=== PATIENT | female | born 1955 | race Caucasian/White ===

== ENCOUNTER → 2017-03-16 | Outpatient (CLI) | payer OTHER ==
--- NOTE | 2017-03-16 13:52 | MAMMOGRAPHY REPORT ---
BILATERAL DIGITAL SCREENING MAMMOGRAM WITH CAD: 03/16/2017 CLINICAL HISTORY: Routine screening. Patient has no complaints. TECHNIQUE: Bilateral CC and MLO views were obtained. Current study was also evaluated with a Compute r Aided Detection (CAD) system. COMPARISON: Comparison is made to exams dated: 01/21/2016 mammogram, 12/04/2014 mammogram, 10/05/2013 asp iration, 09/21/2013 mammogram, 09/21/2013 ultrasound, and 09/12/2013 mammogram - [facility] enter. BREAST COMPOSITION: There are scattered areas of fibroglandular density in both breasts. FINDINGS: There is a focal asymmetry in the upper outer middle one third of the left breast, for whi ch additional spot compression tomosynthesis views and possibly ultrasound are recommended. There are 2 stable ribbon shaped metallic biopsy markers in the left breast. Scattered benign-appear ing macro calcifications bilaterally. A stable lobulated and circumscribed mass in the superior post erior right breast on the MLO view is unchanged dating back to at least 06/11/2009, therefore likely benign. No other suspicious mass, architectural distortion or cluster of microcalcifications is seen. IMPRESSION: ACR BI-RADS CATEGORY 0: INCOMPLETE EVALUATION: NEED ADDITIONAL IMAGING EVALUATION The focal asymmetry in the left upper outer breast needs additional evaluation. The patient will be called to schedule an appointment. Approximately 10% of breast cancers are not detected with mammography. A negative mammographic report should not delay biopsy if a clinically suggestive mass is present. Theresa Dixon M.D. ay/:03/16/2017 08:22:34 Loading Dock Helper: Miriam Begum, [facility] letter sent: Addl Imaging 0 BI-RADS Code: ACR BI-RADS Category 0: Incomplete Evaluation: Need Additional Imaging Evaluation
== END | disposition home or self-care (01) ==
LOC: C.MAMM 07:12
PROVIDERS: ATTEND Family Medicine
DX: Z12.31 Encounter for screening mammogram for malignant neoplasm of breast (principal); N64.9 Disorder of breast, unspecified

== ENCOUNTER → 2017-04-01 | Outpatient (CLI) | payer OTHER ==
--- NOTE | 2017-04-01 13:22 | MAMMOGRAPHY REPORT ---
UNILATERAL LEFT DIGITAL DIAGNOSTIC MAMMOGRAM TOMOSYNTHESIS AND TARGETED LEFT ULTRASOUND: 04/01/2017 CLINICAL HISTORY: Callback from screening mammogram for left breast asymmetry. TECHNIQUE: Breast tomosynthesis in addition to standard 2D mammography was performed. Spot compress ion left CC and MLO 2D and tomosynthesis images were obtained. COMPARISON: Comparison is made to exams dated: 03/16/2017 mammogram, 01/21/2016 mammogram, 12/04/2014 ma mmogram, 09/12/2013 mammogram, 09/21/2013 ultrasound, and 07/24/2012 mammogram - [facility]. BREAST COMPOSITION: There are scattered areas of fibroglandular density in the left breast. FINDINGS: The previously described focal asymmetry in the left upper outer quadrant effaces to a bas marco appearance on the additional spot compression views, with appearance of this region similar to multiple prior exams including the 2010 exam. On the tomosynthesis images there are possible round c ircumscribed masses seen within the asymmetry, the largest measuring 7 mm. A biopsy marker clip is a gain noted within the asymmetry in the left upper outer quadrant. No suspicious masses or architectu ral distortion is noted on the additional images. Targeted ultrasound was performed of the area of the asymmetry within the left upper outer quadrant. In the left breast at 2:00, 2 cm from the nipple, there are multiple adjacent anechoic circumscribed masses consistent with cysts, the largest measuring 6 x 7 mm. A hypoechoic 9 x 7 mm mass is also se en within the area of the cyst grouping, with a linear echogenicity seen within it consistent with a biopsy marker clip from prior benign biopsy. These masses correspond with the circumscribed masses s een mammographically. No suspicious masses or other suspicious sonographic abnormalities are evident in this region. IMPRESSION: ACR BI-RADS CATEGORY 2: BENIGN, TARGETED ULTRASOUND ACR BI-RADS CATEGORY 2: BENIGN The left breast asymmetry effaces to a baseline appearance on the additional views. Corresponding ad jacent cysts are seen on ultrasound, without a suspicious sonographic abnormality evident in this reg ion. Findings are benign and felt to represent combination of normal fibroglandular tissue and cysts . There is no mammographic or targeted sonographic evidence of malignancy. A 1 year screening mammog arnaldo is recommended. The patient has been verbally notified of the results. Approximately 10% of breast cancers are not detected with mammography. A negative mammographic report should not delay biopsy if a clinically suggestive mass is present. Caitie Parisi M.D. ah/:04/01/2017 08:37:16 Leadership Program Associate: Piper MARIEE)(Chhaya), [facility] letter sent: Normal 1/2 BI-RADS Code: ACR BI-RADS Category 2: Benign Ultrasound BI-RADS: ACR BI-RADS Category 2: Benign
== END | disposition home or self-care (01) ==
LOC: C.MAMM 08:00
PROVIDERS: ATTEND Family Medicine
DX: N64.89 Other specified disorders of breast (principal); N60.02 Solitary cyst of left breast

== ENCOUNTER 2023-03-29 03:00 | Inpatient (IN) ==
[2023-03-29] MEDS ORDERED: SODIUM CHLORIDE 0.9% 500 ML IV ONE (03:53)
[2023-03-29] MEDS ORDERED: SODIUM CHLORIDE 0.9% 1000ML 1,000 ML IV SCH (04:00)
[2023-03-29 04:31] LABS: Basophils # (auto) 0.07 K/uL (0-0.2); Basophils % (auto) 0.6 %; Eosinophils # (auto) 0.07 K/uL (0-0.50); Eosinophils % (auto) 0.6 %; Hematocrit (blood only) 37.9 % (37.0-47.0); Hemoglobin 12.9 g/dl (12.0-16.0); Immature Granulocytes # (auto) 0.07 K/uL (0.01-0.20); Immature Granulocytes % (auto) 0.6 %; Lymphocytes # (auto) 1.78 K/uL (1.2-3.4); Lymphocytes % (auto) 14.2 %; Mean Corpuscular Volume 88.1 fL (80.0-100.0); Mean Platelet Volume 11.6 fL (9.4-12.4); Monocytes % (auto) 6.4 %; Neutrophils # (auto) 9.74 K/uL (1.40-6.50); Neutrophils % (auto) 77.6 %; Platelet Count 200 K/uL (130-400); RDW Coefficient of Variation 12.1 % (11.5-14.5); RDW Standard Deviation 38.8 fL (36.4-46.3); White Blood Count 12.53 K/ul (4.8-10.8)
[2023-03-29 04:46] LABS: Albumin Globulin Ratio 1.1 (0.9-2); Albumin Level 3.9 gm/dl (3.4-5.0); BUN Creatinine Ratio 20.5 (10-20); Bilirubin,Total 0.6 mg/dl (0.2-1.0); Creatinine Clr Calc Pharmacy 61.2 ml/min; Est GFR (African American) 83.4 ml/min; Est GFR (Non-African American) 71.9 ml/min; Globulin 3.4 gm/dl (2.5-4.0); Potassium 3.4 mmol/L (3.5-5.1); Total Protein 7.3 gm/dl (6.0-8.3)
[2023-03-29 05:07] LABS: INR 0.9 (0.9-1.1); Partial Thromboplastin Ratio 0.9; Partial Thromboplastin Time 24.7 Seconds (21.0-31.0); Prothrombin Time 10.4 Seconds (9.0-12.0)
--- NOTE | 2023-03-29 05:23 | Emergency Department Note ---
Impression & Plan Hematochezia, Shingles rash, Renal infarction ED Provider Note CHIEF COMPLAINT: Bright red blood per rectum. HISTORY OF PRESENT ILLNESS: This 68-year-old female patient with past medical history of recent shingles diagnosis, hypothyroidism, lichen sclerosis, hyperlipidemia, hypertension presents to the emergency department with complaints of bright red blood per rectum since this afternoon. Patient states she had diarrhea for the better part of 2 days prior to the onset of bright red blood. She has not noticed any fevers. Since that time the patient has been passing mostly bright red blood 2-3 times. Patient is concerned that her Valtrex could be causing the bleeding. She is currently only taking Tylenol for pain related to the shingles. REVIEW OF SYSTEMS: A review of systems was performed with positives and pertinent negatives listed in the history of present illness. 10 systems were reviewed and are otherwise negative. ALLERGIES: see below MEDICATIONS: see below PMH: see below SOCIAL HISTORY: see below DDx:Diverticulosis, AVM, coagulopathy, colitis, inflammatory bowel disease, malignancy, fissure, hemorrhoids, as well as other pathologies. PHYSICAL EXAM: Vital signs reviewed. General: Well-appearing 68 yo female, in no significant distress. HEENT: No scleral icterus, PERRLA, neck supple. Atraumatic. Cardiovascular: Regular rate and rhythm, no extra sounds. Pulmonary: Clear to auscultation bilaterally, normal work of breathing. Abdomen: Soft, nontender, nondistended, positive bowel sounds. Musculoskeletal: Atraumatic, no peripheral edema. Rectal: Normal external mucosa, bright red blood, guaiac positive. Neurologic: Patient awake alert and oriented x 3 Skin: Warm, dry, no rash EMERGENCY DEPARTMENT COURSE/MDM: This patient was evaluated and appeared to be in no significant distress. IV access was obtained and laboratory work was drawn. Patient was placed on the ekg monitor tech and noted to be in a normal sinus rhythm with sinus arrhythmia. She was hydrated with normal saline solution. Stool studies were ordered. The patient was sent for CT imaging of the abdomen pelvis which notes a mild colitis with a subacute renal infarct. There is extensive plaque on the abdominal aorta. Given the above findings, there is concern that the patient may be suffering from ischemic colitis. Patient was referred to the hospitalist service for further evaluation and management of the colitis/GI bleed and subacute renal infarct. MONITORING: An order for cardiac monitoring was placed and the patient is noted to be in a sinus tachycardia at 106 beats per minute. RADIOLOGY: CT abdomen and pelvis please see read below. EKG: To my interpretation reveals a normal sinus rhythm with sinus arrhythmia at 86 bpm. QTc is 426, no PVC, no PAC. No significant change from previous. DISPOSITION: Admission Past Med/Surg History Medical History History of uterine leiomyoma Hypothyroidism Lichen sclerosus Surgical History History of total abdominal hysterectomy and bilateral salpingo-oophorectomy age 39, took premarin x5 years Family History Mother Ovarian cancer Denies family history of Prostate cancer Breast cancer Colorectal cancer Social History Smoking Status: Never smoker Second Hand Exposure: No; Do You Dip or Chew Tobacco: No; Tobacco Cessation Education Requested by Patient: No Hx Alcohol Use: No Hx Substance Use: No Preferred Language: Bengali Communication Ability: Effective 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 Current Living Situation: Spouse Other Information That Helps Us Care for You: No Feels Safe at Home: Yes Safety Concerns: Feels Safe At This Time Assistive Devices: Denture - Upper and Glasses Allergies Allergies Allergy/AdvReac Type Severity Reaction Status Date / Time Sulfa (Sulfonamide Allergy Verified 07/28/21 09:14 Antibiotics) Home Meds Home Medications Medication Instructions Recorded Confirmed amlodipine 10 mg tablet 10 mg PO DAILY 07/28/21 03/29/23 atorvastatin 20 mg tablet 20 mg PO DAILY 07/28/21 03/29/23 lisinopril 10 mg tablet 10 mg PO DAILY 07/28/21 03/29/23 levothyroxine 75 mcg tablet 75 mcg PO DAILY 03/29/23 03/29/23 Previous Rx's Medication Instructions Recorded ondansetron 4 mg disintegrating 4 mg PO Q6H PRN nausea and 03/27/23 tablet vomiting #15 tabs valacyclovir 1 gram tablet 1,000 mg PO Q8H 7 days #21 tabs 03/27/23 Results & Data (ED) Vital Signs Vital Signs - 24 hr 03/29/23 03:05 08/01/23 03:13 03/29/23 05:01 Temperature 36.6 C Temperature Source Temporal Artery Scan Pulse Rate 106 H Respiratory Rate 20 Respiratory Effort / Characteristics Non-Labored Non-Labored Respiratory Depth Normal Normal Blood Pressure 144/70 H Blood Pressure Mean 94 Pulse Oximetry 96 98 Oxygen Delivery Method Room Air Room Air Sepsis Recent Fever Within 48 Hours No Sepsis New/Unexplained Change in Mental Status N/A Sepsis Action Taken by Nursing No Action Required Home Medications Current Medication List: was personally reviewed by me Laboratory Data Attestation: I reviewed the patient's lab results. 03/29/23 03:38 03/29/23 03:38 Lab Results 03/29/23 03/29/23 03/29/23 Range/Units 03:13 03:38 03:38 WBC 12.53 H (4.8-10.8) K/ul RBC 4.30 (4.20-5.40) M/uL Hgb 12.9 (12.0-16.0) g/dl Hct 37.9 (37.0-47.0) % MCV 88.1 (80.0-100.0) fL MCH 30.0 (25.0-34.0) pg MCHC 34.0 (32.0-36.0) g/dL RDW Std Deviation 38.8 (36.4-46.3) fL RDW Coeff of Jocy 12.1 (11.5-14.5) % Plt Count 200 (130-400) K/uL MPV 11.6 (9.4-12.4) fL Immature Gran % (Auto) 0.6 % Neut % (Auto) 77.6 % Lymph % (Auto) 14.2 % Twiggs % (Auto) 6.4 % Eos % (Auto) 0.6 % Baso % (Auto) 0.6 % Neut # (Auto) 9.74 H (1.40-6.50) K/uL Lymph # (Auto) 1.78 (1.2-3.4) K/uL Twiggs # (Auto) 0.80 H (0.11-0.59) K/uL Eos # (Auto) 0.07 (0-0.50) K/uL Baso # (Auto) 0.07 (0-0.2) K/uL Immature Gran # (Auto) 0.07 (0.01-0.20) K/uL PT 10.4 (9.0-12.0) Seconds INR 0.9 (0.9-1.1) APTT 24.7 (21.0-31.0) Seconds PTT Ratio 0.9 Sodium (136-145) mmol/L Potassium (3.5-5.1) mmol/L Chloride (98-107) mmol/L Carbon Dioxide (21-32) mmol/L Anion Gap (3-11) BUN (6-23) mg/dl Creatinine (0.6-1.2) mg/dl Est Cr Clr Drug Dosing ml/min Est GFR ( Amer) ml/min Est GFR (Non-Af Amer) ml/min BUN/Creatinine Ratio (10-20) Glucose (70-99(Fasting)) mg/dl Calcium (8.6-10.3) mg/dl Total Bilirubin (0.2-1.0) mg/dl AST (13-39) U/L ALT (7-52) U/L Alkaline Phosphatase (34-104) U/L Total Protein (6.0-8.3) gm/dl Albumin (3.4-5.0) gm/dl Globulin (2.5-4.0) gm/dl Albumin/Globulin Ratio (0.9-2) POC Stool Occult Blood Positive A (Negative) Stl C. cayetanensis PCR (NotDetected) Stool Rotavirus A PCR (NotDetected) Stl Adenov F 40/41 PCR (NotDetected) Stool Astrovirus (PCR) (NotDetected) Stool Campylobacter PCR (NotDetected) Stl C. diff Tox B Gene (Neg) Stool Cryptosporidium PCR (NotDetected) Stl E.coli Shiga Tox PCR (NotDetected) Stl Enterotoxigenic E PCR (NotDetected) Stool EPEC (PCR) (NotDetected) Stool EAEC (PCR) (NotDetected) Stl E. histolytica PCR (NotDetected) Stool Giardia Lamblia PCR (NotDetected) Stool Salmonella PCR (NotDetected) Stool Sapovirus (PCR) (NotDetected) Stl P. shigelloides PCR (NotDetected) Stl Shigella/EIEC PCR (NotDetected) St Y.enterocolitica PCR (NotDetected) Stool Vibrio (PCR) (NotDetected) Stl Vibrio cholerae PCR (NotDetected) Stl Norovirus GI/GII PCR (NotDetected) SARS-CoV-2, RNA, NAAT (NEGATIVE) 03/29/23 03/29/23 03/29/23 Range/Units 03:38 04:30 05:15 WBC (4.8-10.8) K/ul RBC (4.20-5.40) M/uL Hgb (12.0-16.0) g/dl Hct (37.0-47.0) % MCV (80.0-100.0) fL MCH (25.0-34.0) pg MCHC (32.0-36.0) g/dL RDW Std Deviation (36.4-46.3) fL RDW Coeff of Jocy (11.5-14.5) % Plt Count (130-400) K/uL MPV (9.4-12.4) fL Immature Gran % (Auto) % Neut % (Auto) % Lymph % (Auto) % Twiggs % (Auto) % Eos % (Auto) % Baso % (Auto) % Neut # (Auto) (1.40-6.50) K/uL Lymph # (Auto) (1.2-3.4) K/uL Twiggs # (Auto) (0.11-0.59) K/uL Eos # (Auto) (0-0.50) K/uL Baso # (Auto) (0-0.2) K/uL Immature Gran # (Auto) (0.01-0.20) K/uL PT (9.0-12.0) Seconds INR (0.9-1.1) APTT (21.0-31.0) Seconds PTT Ratio Sodium 138 (136-145) mmol/L Potassium 3.4 L (3.5-5.1) mmol/L Chloride 110 H (98-107) mmol/L Carbon Dioxide 17 L (21-32) mmol/L Anion Gap 11 (3-11) BUN 17 (6-23) mg/dl Creatinine 0.83 (0.6-1.2) mg/dl Est Cr Clr Drug Dosing 61.2 ml/min Est GFR ( Amer) 83.4 ml/min Est GFR (Non-Af Amer) 71.9 ml/min BUN/Creatinine Ratio 20.5 H (10-20) Glucose 124 H (70-99(Fasting)) mg/dl Calcium 9.0 (8.6-10.3) mg/dl Total Bilirubin 0.6 (0.2-1.0) mg/dl AST 22 (13-39) U/L ALT 18 (7-52) U/L Alkaline Phosphatase 119 H (34-104) U/L Total Protein 7.3 (6.0-8.3) gm/dl Albumin 3.9 (3.4-5.0) gm/dl Globulin 3.4 (2.5-4.0) gm/dl Albumin/Globulin Ratio 1.1 (0.9-2) POC Stool Occult Blood (Negative) Stl C. cayetanensis PCR (NotDetected) Stool Rotavirus A PCR (NotDetected) Stl Adenov F 40/41 PCR (NotDetected) Stool Astrovirus (PCR) (NotDetected) Stool Campylobacter PCR (NotDetected) Stl C. diff Tox B Gene Negative Cdiff Gene (Neg) Stool Cryptosporidium PCR (NotDetected) Stl E.coli Shiga Tox PCR (NotDetected) Stl Enterotoxigenic E PCR (NotDetected) Stool EPEC (PCR) (NotDetected) Stool EAEC (PCR) (NotDetected) Stl E. histolytica PCR (NotDetected) Stool Giardia Lamblia PCR (NotDetected) Stool Salmonella PCR (NotDetected) Stool Sapovirus (PCR) (NotDetected) Stl P. shigelloides PCR (NotDetected) Stl Shigella/EIEC PCR (NotDetected) St Y.enterocolitica PCR (NotDetected) Stool Vibrio (PCR) (NotDetected) Stl Vibrio cholerae PCR (NotDetected) Stl Norovirus GI/GII PCR (NotDetected) SARS-CoV-2, RNA, NAAT NEGATIVE (NEGATIVE) 03/29/23 Range/Units 05:15 WBC (4.8-10.8) K/ul RBC (4.20-5.40) M/uL Hgb (12.0-16.0) g/dl Hct (37.0-47.0) % MCV (80.0-100.0) fL MCH (25.0-34.0) pg MCHC (32.0-36.0) g/dL RDW Std Deviation (36.4-46.3) fL RDW Coeff of Jocy (11.5-14.5) % Plt Count (130-400) K/uL MPV (9.4-12.4) fL Immature Gran % (Auto) % Neut % (Auto) % Lymph % (Auto) % Twiggs % (Auto) % Eos % (Auto) % Baso % (Auto) % Neut # (Auto) (1.40-6.50) K/uL Lymph # (Auto) (1.2-3.4) K/uL Twiggs # (Auto) (0.11-0.59) K/uL Eos # (Auto) (0-0.50) K/uL Baso # (Auto) (0-0.2) K/uL Immature Gran # (Auto) (0.01-0.20) K/uL PT (9.0-12.0) Seconds INR (0.9-1.1) APTT (21.0-31.0) Seconds PTT Ratio Sodium (136-145) mmol/L Potassium (3.5-5.1) mmol/L Chloride (98-107) mmol/L Carbon Dioxide (21-32) mmol/L Anion Gap (3-11) BUN (6-23) mg/dl Creatinine (0.6-1.2) mg/dl Est Cr Clr Drug Dosing ml/min Est GFR ( Amer) ml/min Est GFR (Non-Af Amer) ml/min BUN/Creatinine Ratio (10-20) Glucose (70-99(Fasting)) mg/dl Calcium (8.6-10.3) mg/dl Total Bilirubin (0.2-1.0) mg/dl AST (13-39) U/L ALT (7-52) U/L Alkaline Phosphatase (34-104) U/L Total Protein (6.0-8.3) gm/dl Albumin (3.4-5.0) gm/dl Globulin (2.5-4.0) gm/dl Albumin/Globulin Ratio (0.9-2) POC Stool Occult Blood (Negative) Stl C. cayetanensis PCR Not Detected (NotDetected) Stool Rotavirus A PCR Not Detected (NotDetected) Stl Adenov F 40/41 PCR Not Detected (NotDetected) Stool Astrovirus (PCR) Not Detected (NotDetected) Stool Campylobacter PCR Not Detected (NotDetected) Stl C. diff Tox B Gene (Neg) Stool Cryptosporidium PCR Not Detected (NotDetected) Stl E.coli Shiga Tox PCR Not Detected (NotDetected) Stl Enterotoxigenic E PCR Not Detected (NotDetected) Stool EPEC (PCR) Not Detected (NotDetected) Stool EAEC (PCR) Not Detected (NotDetected) Stl E. histolytica PCR Not Detected (NotDetected) Stool Giardia Lamblia PCR Not Detected (NotDetected) Stool Salmonella PCR Not Detected (NotDetected) Stool Sapovirus (PCR) Not Detected (NotDetected) Stl P. shigelloides PCR Not Detected (NotDetected) Stl Shigella/EIEC PCR Not Detected (NotDetected) St Y.enterocolitica PCR Not Detected (NotDetected) Stool Vibrio (PCR) Not Detected (NotDetected) Stl Vibrio cholerae PCR Not Detected (NotDetected) Stl Norovirus GI/GII PCR Not Detected (NotDetected) SARS-CoV-2, RNA, NAAT (NEGATIVE) Administered Medications Lactated Ringer's (Lr) 1,000 mls @ 100 mls/hr IV .Q10H [facility] Stop: 04/28/23 08:14 Last Admin: 03/29/23 17:57 Dose: 100 mls/hr Documented By: Infusion: 03/29/23 17:57 Dose: 0 mls/hr Documented By: Admin: 03/29/23 09:10 Dose: 100 mls/hr Documented By: GALO Piperacillin Sod/Tazobactam (Sod 4.5 gm/ Dextrose) 120 mls @ 30 mls/hr IV Q8H STEVEN; Protocol Stop: 04/08/23 10:54 Last Infusion: 03/29/23 17:52 Dose: 0 mls/hr Documented By: Admin: 03/29/23 13:42 Dose: 30 mls/hr Documented By: GALO Valacyclovir HCl (Valacyclovir Hcl 500 Mg Tablet) 1,000 mg PO Q8 STEVEN Stop: 04/05/23 13:59 Last Admin: 03/29/23 13:42 Dose: 1,000 mg Documented By: GALO Discontinued Medications Sodium Chloride (Nss) 500 mls @ 999 mls/hr IV .Q31M ONE Stop: 03/29/23 04:23 Last Infusion: 03/29/23 09:10 Dose: 0 mls/hr Documented By: Admin: 03/29/23 04:56 Dose: 999 mls/hr Documented By: ARNULFO Sodium Chloride (Nss 1000ml) 1,000 mls @ 100 mls/hr IV .Q10H STEVEN Stop: 04/28/23 03:59 Last Infusion: 03/29/23 09:10 Dose: 0 mls/hr Documented By: Admin: 03/29/23 04:56 Dose: 100 mls/hr Documented By: ARNULFO Piperacillin Sod/Tazobactam Sod (Zosyn) 4.5 gm in 120 mls @ 200 mls/hr IV NOW ONE; Protocol Stop: 03/29/23 09:05 Last Infusion: 03/29/23 10:03 Dose: 0 mls/hr Documented By: Admin: 03/29/23 09:11 Dose: 200 mls/hr Documented By: GALO Potassium Chloride (K Sathya / Wtr) 10 meq in 100 mls @ 100 mls/hr IV Q1H STEVEN Stop: 03/29/23 11:14 Last Infusion: 03/29/23 15:46 Dose: 0 mls/hr Documented By: Admin: 03/29/23 11:12 Dose: 100 mls/hr Documented By: Infusion: 03/29/23 11:12 Dose: 100 mls/hr Documented By: Admin: 03/29/23 10:22 Dose: 100 mls/hr Documented By: Infusion: 03/29/23 09:11 Dose: 0 mls/hr Documented By: Admin: 03/29/23 09:10 Dose: 100 mls/hr Documented By: GALO Ioversol (Optiray 320 100ml) 100 ml IV ONCE ONE Stop: 03/29/23 05:41 Last Admin: 03/29/23 05:41 Dose: 93 ml Documented By: JALYN Piperacillin Sod/Tazobactam Sod (Piperacillin/Tazobactam 4.5 Gm/120ml D5w) Confirm Administered Dose 4.5 gm IV .STK-MED ONE Stop: 03/29/23 13:43 Last Admin: 03/29/23 13:43 Dose: Not Given Documented By: KV Valacyclovir HCl (Valacyclovir Hcl 500 Mg Tablet) 1,000 mg PO NOW ONE Stop: 03/29/23 09:40 Last Admin: 03/29/23 10:23 Dose: 1,000 mg Documented By: KV Imaging Data Radiologist's Impression: Abdomen/Pelvis CT 03/29/23 05:02 CT OF THE ABDOMEN AND PELVIS WITH CONTRAST CLINICAL HISTORY: Bright red blood per rectum. COMPARISON STUDY: None. TECHNIQUE: Following IV administration of 93 mL of Optiray, axial images of the abdomen and pelvis were obtained from the lung bases to the proximal femurs. Images were reviewed in the axial, sagittal, and coronal planes. IV contrast was administered without complication. Automated exposure control was utilized for the study. A dose lowering technique was utilized adhering to the principles of ALARA. CT DOSE: 1252.49 mGy.cm FINDINGS: Lung bases are unremarkable. No pneumatosis, free air or portal venous gas is present. Liver, spleen, adrenal glands and pancreas are unremarkable. There is no biliary or pancreatic ductal dilatation. Multiple subcentimeter renal lesions are too small to characterize. There is a 2.8 cm hypoenhancing focus within the upper pole of the left kidney. There is no evidence for a bowel obstruction. There is moderate circumferential wall thickening of the descending colon and the proximal to mid sigmoid colon with mild pericolonic infiltration. There is no free air or abscess. The appendix is normal. There is extensive plaque of the abdominal aorta which is normal in caliber. The branch vessels are patent. No abdominal or pelvic lymphadenopathy is present. Minimal mesenteric infiltration is of doubtful significance. No acute fractures are identified within the visualized skeletal structures. IMPRESSION: 1. Moderate circumferential wall thickening the descending colon and sigmoid colon with mild pericolonic infiltration. This represents a nonspecific colitis. No free air or abscess. 2. 2.8 cm hypoenhancing focus within the upper pole of the left kidney. This favors a renal infarct , possibly subacute. Pyelonephritis could appear similar although is considered less likely. 3. No bowel obstruction. ACT 112: Negative or not required by law. Electronically signed by: Nathaniel Cantu M.D. 03/29/2023 6:41 AM Discharge Plan Visit Data Chief Complaint: Rectal Bleed Stated Complaint: DIARRHEA,BLOOD IN STOOL ED Provider: Verna New Discharge Problem: Hematochezia, Shingles rash, Renal infarction Patient Disposition: Admitted As Inpatient Discharge Instructions Interventions: ED Discharge Assessment Last Done: 03/29/23 10:55
[2023-03-29] MEDS ORDERED: OPTIRAY 320 100ml IV ONE (05:40)
--- NOTE | 2023-03-29 06:44 | CT Scan Report ---
CT OF THE ABDOMEN AND PELVIS WITH CONTRAST CLINICAL HISTORY: Bright red blood per rectum. COMPARISON STUDY: None. TECHNIQUE: Following IV administration of 93 mL of Optiray, axial images of the abdomen and pelvis we re obtained from the lung bases to the proximal femurs. Images were reviewed in the axial, sagittal, and coronal planes. IV contrast was administered without complication. Automated exposure control wa s utilized for the study. A dose lowering technique was utilized adhering to the principles of ALARA . CT DOSE: 1252.49 mGy.cm FINDINGS: Lung bases are unremarkable. No pneumatosis, free air or portal venous gas is present. Live r, spleen, adrenal glands and pancreas are unremarkable. There is no biliary or pancreatic ductal dil atation. Multiple subcentimeter renal lesions are too small to characterize. There is a 2.8 cm hypoen hancing focus within the upper pole of the left kidney. There is no evidence for a bowel obstruction. There is moderate circumferential wall thickening of the descending colon and the proximal to mid si gmoid colon with mild pericolonic infiltration. There is no free air or abscess. The appendix is norm al. There is extensive plaque of the abdominal aorta which is normal in caliber. The branch vessels a re patent. No abdominal or pelvic lymphadenopathy is present. Minimal mesenteric infiltration is of d oubtful significance. No acute fractures are identified within the visualized skeletal structures. IMPRESSION: 1. Moderate circumferential wall thickening the descending colon and sigmoid colon with mild pericolo phan infiltration. This represents a nonspecific colitis. No free air or abscess. 2. 2.8 cm hypoenhancing focus within the upper pole of the left kidney. This favors a renal infarct , possibly subacute. Pyelonephritis could appear similar although is considered less likely. 3. No bowel obstruction. ACT 112: Negative or not required by law. Electronically signed by: Nathaniel Cantu M.D. 03/29/2023 6:41 AM
[2023-03-29 07:28] LABS: Adenovirus F 40/41 PCR Not Detected (NotDetected); Astrovirus PCR Not Detected (NotDetected); Campylobacter PCR Not Detected (NotDetected); Cryptosporidium PCR Not Detected (NotDetected); Cyclospora cayetanensis PCR Not Detected (NotDetected); Entamoeba histolytica PCR Not Detected (NotDetected); Enteroaggregative E.coli(EAEC) Not Detected (NotDetected); Enteropathogenic E.coli (EPEC) Not Detected (NotDetected); Enterotoxigenic E.coli (ETEC) Not Detected (NotDetected); Giardia lamblia PCR Not Detected (NotDetected); Norovirus GI/GII PCR Not Detected (NotDetected); Plesiomonas shigelloides PCR Not Detected (NotDetected); Rotavirus A PCR Not Detected (NotDetected); Salmonella PCR Not Detected (NotDetected); Sapovirus PCR Not Detected (NotDetected); Shiga-like Toxin E.coli (STEC) Not Detected (NotDetected); Shigella/Enteroinvasive E.coli Not Detected (NotDetected); Vibrio cholerae PCR Not Detected (NotDetected); Vibrio species PCR Not Detected (NotDetected); Yersinia enterocolitica PCR Not Detected (NotDetected)
[2023-03-29] MEDS ORDERED: PIPERACILLIN/TAZOBACTAM 4.5 GM/120 ML BAG IV ONE (08:30)
--- NOTE | 2023-03-29 08:41 | History & Physical Report ---
Date of Service March 29, 2023 Assessment & Plan (1) GI bleed: (2) Colitis: Plan: - Admit to PCU - GI consulted - WBC 12 K, meets sirs criteria with tachycardia - Stool culture completed - Guiac positive - IV zosyn empirically , follow blood cultures - Checking BMP Q4H, bicarb may need checked pending next set of lab work, follow, LR ordered, lactic acid 0.8 - Check Echo, troponin with EKG changes noted - pt denies any cardiac symptoms (3) Herpes zoster: Plan: -Disseminated zoster outbreak: Shingles outbreak involving right upper extremity, right ear/cheek, right chest, right thigh, started on Tuesday 03/27 - Continue valtrex 1000 mg Q8H - Consider ID involvement pending course - Consider addition of gabapentin if becomes painful, currently pt reports mild pain/itching (4) Renal infarction: Plan: - CT of the abd pelvis- showing possible pyelonephritis and subacute renal infarct - pt denies urinary complaints - Continue LR as above, adjust pending if pt is allowed to have PO intake- will await GI recs - Urology consulted - Checking lactic acid which is negative - Urine cultures pending - Strict I/Os (5) HTN (hypertension): Plan: - May continue amlodipine and lisinopril for now (6) HLD (hyperlipidemia): Plan: - Cont atorvastatin (7) Hypothyroidism: Plan: - TSH with am labs DVT ppx: teds, scds with GI bleed CODE: FULL Dispo: From home, likely to remain in the hospital x 1-2 days A total of 77 minutes were spent with greater than 50% of that time face to face with the patient, personally reviewing all current laboratories, imaging studies, past medication reconciliation, outpatient chart review, and discussion with specialists to collaborate care for the patient with attending. Please see attending documentation for corrections and/or additions. History of Present Illness Chief Complaint: Rectal bleeding Primary Care Provider: Job Hassan MD This is a 68 yo F with PMHx with PMHx of hypothyroidism, herpes zoster with shingles currently on valtrex, possible renal infarction who presents to the hospital with complaints of bloody diarrhea. On Tuesday she started having pain over her right arm, was in the shower, and felt dizzy and fell, believes she passed out, but denies hitting her head as her was in the bathroom with her and broke her fall by catching her and setting her down. On Tuesday the patient noticed that she was starting to have an outbreak of a rash on her right arm going down the shoulder into her forearm. She thought that it was possibly shingles so called her doctor's office who ga ve her a prescription for Valtrex which she started on Tuesday. Then yesterday started with diarrhea all day and progressed to GI bleed with bright red blood and some clots, no nausea or vomiting. She has had central abdominal cramping which is relieved with bowel movement. Initially on Tuesday and Tuesday had some nausea. She had been eating well until yesterday, but has not had much by way of p.o. intake for the past 24 hours. She presented to the ER at 3 AM mostly because of progressive bloody bowel movements. Patient is feeling somewhat better at this point after some fluids. Pt is making urine which is clear, denies dysuria or blood there. She has never had a outbreak of shingles before. Patient reports living at home with her , but otherwise no recent immunocompromised contacts. Allergies Allergy/AdvReac Type Severity Reaction Status Date / Time Sulfa (Sulfonamide Allergy Verified 07/28/21 09:14 Antibiotics) Home Medications Medication Instructions Recorded Confirmed Type amlodipine 10 mg tablet 10 mg PO DAILY 07/28/21 03/29/23 History atorvastatin 20 mg tablet 20 mg PO DAILY 07/28/21 03/29/23 History lisinopril 10 mg tablet 10 mg PO DAILY 07/28/21 03/29/23 History ondansetron 4 mg disintegrating 4 mg PO Q6H PRN nausea and 03/27/23 03/29/23 Rx tablet vomiting #15 tabs valacyclovir 1 gram tablet 1,000 mg PO Q8H 7 days #21 tabs 03/27/23 03/29/23 Rx levothyroxine 75 mcg tablet 75 mcg PO DAILY 03/29/23 03/29/23 History Past Med/Surg History Medical History History of uterine leiomyoma Hypothyroidism Lichen sclerosus Surgical History History of total abdominal hysterectomy and bilateral salpingo-oophorectomy age 39, took premarin x5 years Family History Mother Ovarian cancer Denies family history of Prostate cancer Breast cancer Colorectal cancer Social History Smoking Status: Never smoker Second Hand Exposure: No; Do You Dip or Chew Tobacco: No; Tobacco Cessation Education Requested by Patient: No Hx Alcohol Use: No Hx Substance Use: No Preferred Language: Liberian Communication Ability: Effective Compensator Required: No Current Living Situation: Spouse Other Information That Helps Us Care for You: No Feels Safe at Home: Yes Safety Concerns: Feels Safe At This Time Assistive Devices: Denture - Upper and Glasses Review of Systems Review of Systems: Constitutional: No fever, sweats or chills Eyes: No diplopia, no worsening or blurred vision ENT: normal hearing, no trouble swallowing Respiratory: No cough, sputum, dyspnea at rest or on exertion Cardiovascular: No chest pain, tightness or palpitations Abdomen: As per HPI Musculoskeletal: No joint pain, calf pain, swelling Neurologic: No weakness, numbness/tingling, or balance problems Psychiatric: No anxiety or depression Skin: Red rash over the right upper extremity, itching, minimally painful Physical Exam Physical Exam: General: awake, alert, no apparent distress, BMI 26.3 Head: Normocephalic, atraumatic, ENT: PERRL, EOMI, no pharyngeal exudate, mucous membranes moist Chest: Clear to auscultation, on room air, no adventitious breath sounds Cardiac: Regular rate and rhythm, soft systolic murmur grade 1/6, no JVD, normal peripheral pulses, good capillary refill Abdominal: NABS x 4 quadrants, soft, nondistended, + mild diffuse tenderness to palpation in central abdominal region, no rebound or guarding Extremities: Normal inspection, no peripheral edema or erythema, calfs nontender to palpation Psych: Normal mood and affect Neuro: AAO x 3, strength intact bilaterally and rated 5/5, no motor deficits, speech is clear, no peripheral sensory deficits Skin: Few vesicular rash-like lesions over the right earlobe 2 on her right cheek, significant rash involving the right deltoid region right anterior forearm, pinky finger, few singular lesions over the right chest wall, 1 on the bra line, 1 on her right thigh, 1 on right inner knee region. Results & Data Results & Data Vital Signs (Past 12 Hours) Vital Signs Temp Pulse Resp BP Pulse Ox O2 Del Method 03/29/23 03:13 98 Room Air 03/29/23 03:05 36.6 C 106 H 20 144/70 H 96 Room Air Laboratory Results 03/29/23 03/29/23 03/29/23 05:15 05:15 04:30 WBC RBC Hgb Hct MCV MCH MCHC RDW Std Deviation RDW Coeff of Jocy Plt Count MPV Immature Gran % (Auto) Neut % (Auto) Lymph % (Auto) [place] % (Auto) Eos % (Auto) Baso % (Auto) Neut # (Auto) Lymph # (Auto) [place] # (Auto) Eos # (Auto) Baso # (Auto) Immature Gran # (Auto) PT INR APTT PTT Ratio Sodium Potassium Chloride Carbon Dioxide Anion Gap BUN Creatinine Est Cr Clr Drug Dosing Est GFR ( Amer) Est GFR (Non-Af Amer) BUN/Creatinine Ratio Glucose Calcium Total Bilirubin AST ALT Alkaline Phosphatase Total Protein Albumin Globulin Albumin/Globulin Ratio POC Stool Occult Blood Stl C. cayetanensis PCR Not Detected Stool Rotavirus A PCR Not Detected Stl Adenov F 40/41 PCR Not Detected Stool Astrovirus (PCR) Not Detected Stool Campylobacter PCR Not Detected Stl C. diff Tox B Gene Negative Cdiff Gene Stool Cryptosporidium PCR Not Detected Stl E.coli Shiga Tox PCR Not Detected Stl Enterotoxigenic E PCR Not Detected Stool EPEC (PCR) Not Detected Stool EAEC (PCR) Not Detected Stl E. histolytica PCR Not Detected Stool Giardia Lamblia PCR Not Detected Stool Salmonella PCR Not Detected Stool Sapovirus (PCR) Not Detected Stl P. shigelloides PCR Not Detected Stl Shigella/EIEC PCR Not Detected St Y.enterocolitica PCR Not Detected Stool Vibrio (PCR) Not Detected Stl Vibrio cholerae PCR Not Detected Stl Norovirus GI/GII PCR Not Detected SARS-CoV-2, RNA, NAAT NEGATIVE 03/29/23 03/29/23 03/29/23 03:38 03:38 03:38 WBC 12.53 H RBC 4.30 Hgb 12.9 Hct 37.9 MCV 88.1 MCH 30.0 MCHC 34.0 RDW Std Deviation 38.8 RDW Coeff of Jocy 12.1 Plt Count 200 MPV 11.6 Immature Gran % (Auto) 0.6 Neut % (Auto) 77.6 Lymph % (Auto) 14.2 [place] % (Auto) 6.4 Eos % (Auto) 0.6 Baso % (Auto) 0.6 Neut # (Auto) 9.74 H Lymph # (Auto) 1.78 [place] # (Auto) 0.80 H Eos # (Auto) 0.07 Baso # (Auto) 0.07 Immature Gran # (Auto) 0.07 PT 10.4 INR 0.9 APTT 24.7 PTT Ratio 0.9 Sodium 138 Potassium 3.4 L Chloride 110 H Carbon Dioxide 17 L Anion Gap 11 BUN 17 Creatinine 0.83 Est Cr Clr Drug Dosing 61.2 Est GFR ( Amer) 83.4 Est GFR (Non-Af Amer) 71.9 BUN/Creatinine Ratio 20.5 H Glucose 124 H Calcium 9.0 Total Bilirubin 0.6 AST 22 ALT 18 Alkaline Phosphatase 119 H Total Protein 7.3 Albumin 3.9 Globulin 3.4 Albumin/Globulin Ratio 1.1 POC Stool Occult Blood Stl C. cayetanensis PCR Stool Rotavirus A PCR Stl Adenov F 40/41 PCR Stool Astrovirus (PCR) Stool Campylobacter PCR Stl C. diff Tox B Gene Stool Cryptosporidium PCR Stl E.coli Shiga Tox PCR Stl Enterotoxigenic E PCR Stool EPEC (PCR) Stool EAEC (PCR) Stl E. histolytica PCR Stool Giardia Lamblia PCR Stool Salmonella PCR Stool Sapovirus (PCR) Stl P. shigelloides PCR Stl Shigella/EIEC PCR St Y.enterocolitica PCR Stool Vibrio (PCR) Stl Vibrio cholerae PCR Stl Norovirus GI/GII PCR SARS-CoV-2, RNA, NAAT 03/29/23 03:13 WBC RBC Hgb Hct MCV MCH MCHC RDW Std Deviation RDW Coeff of Jocy Plt Count MPV Immature Gran % (Auto) Neut % (Auto) Lymph % (Auto) [place] % (Auto) Eos % (Auto) Baso % (Auto) Neut # (Auto) Lymph # (Auto) [place] # (Auto) Eos # (Auto) Baso # (Auto) Immature Gran # (Auto) PT INR APTT PTT Ratio Sodium Potassium Chloride Carbon Dioxide Anion Gap BUN Creatinine Est Cr Clr Drug Dosing Est GFR ( Amer) Est GFR (Non-Af Amer) BUN/Creatinine Ratio Glucose Calcium Total Bilirubin AST ALT Alkaline Phosphatase Total Protein Albumin Globulin Albumin/Globulin Ratio POC Stool Occult Blood Positive A Stl C. cayetanensis PCR Stool Rotavirus A PCR Stl Adenov F 40/41 PCR Stool Astrovirus (PCR) Stool Campylobacter PCR Stl C. diff Tox B Gene Stool Cryptosporidium PCR Stl E.coli Shiga Tox PCR Stl Enterotoxigenic E PCR Stool EPEC (PCR) Stool EAEC (PCR) Stl E. histolytica PCR Stool Giardia Lamblia PCR Stool Salmonella PCR Stool Sapovirus (PCR) Stl P. shigelloides PCR Stl Shigella/EIEC PCR St Y.enterocolitica PCR Stool Vibrio (PCR) Stl Vibrio cholerae PCR Stl Norovirus GI/GII PCR SARS-CoV-2, RNA, NAAT Diagnostic Findings Abdomen/Pelvis CT 03/29/23 05:02 CT OF THE ABDOMEN AND PELVIS WITH CONTRAST CLINICAL HISTORY: Bright red blood per rectum. COMPARISON STUDY: None. TECHNIQUE: Following IV administration of 93 mL of Optiray, axial images of the abdomen and pelvis were obtained from the lung bases to the proximal femurs. Images were reviewed in the axial, sagittal, and coronal planes. IV contrast was administered without complication. Automated exposure control was utilized for the study. A dose lowering technique was utilized adhering to the principles of ALARA. CT DOSE: 1252.49 mGy.cm FINDINGS: Lung bases are unremarkable. No pneumatosis, free air or portal venous gas is present. Liver, spleen, adrenal glands and pancreas are unremarkable. There is no biliary or pancreatic ductal dilatation. Multiple subcentimeter renal lesions are too small to characterize. There is a 2.8 cm hypoenhancing focus within the upper pole of the left kidney. There is no evidence for a bowel obstruction. There is moderate circumferential wall thickening of the descending colon and the proximal to mid sigmoid colon with mild pericolonic infiltration. There is no free air or abscess. The appendix is normal. There is extensive plaque of the abdominal aorta which is normal in caliber. The branch vessels are patent. No abdominal or pelvic lymphadenopathy is present. Minimal mesenteric infiltration is of doubtful significance. No acute fractures are identified within the visualized skeletal structures. IMPRESSION: 1. Moderate circumferential wall thickening the descending colon and sigmoid colon with mild pericolonic infiltration. This represents a nonspecific colitis. No free air or abscess. 2. 2.8 cm hypoenhancing focus within the upper pole of the left kidney. This favors a renal infarct , possibly subacute. Pyelonephritis could appear similar although is considered less likely. 3. No bowel obstruction. ACT 112: Negative or not required by law. Electronically signed by: Nathaniel Cantu M.D. 03/29/2023 6:41 AM Code Status & VTE Plan Code Status Full code -discussed with the patient and her at bedside Supervising Physician Co-Signing Physician Notes Patient is a 68-year-old female with multiple comorbidities presents with history of ongoing diarrhea for several days, now hemorrhagic since yesterday associated with dizziness, fall. She also was started on Valtrex for herpes outbreak by PCP recently. Admits to have some abdominal cramping relieved with bowel movement. Denies any chest pain, dyspnea. Please review HPI for complete details of presentation. On exam patient is moderately built and nourished, no apparent distress, normocephalic atraumatic, EOMI, normal breath sounds, clear to auscultation, S1-S2,+ murmur, 1+ pedal edema, abdomen soft, nontender, normal bowel sounds, alert, awake, oriented, grossly no focal deficits,+ vesicular lesions in multiple locations noted. Patient is admitted for management of hemorrhagic colitis, possible sepsis, hypokalemia, possible pyelonephritis Vs subacute renal infarct, herpes zoster. Agree with blood, urine cultures. Broad-spectrum IV antibiotics, IV fluids. Lactate within normal limits. GI consulted. Type and cross, monitor H&H and transfuse as needed. Urology consulted as well. Continue Valtrex for herpes zoster. Abnormal EKG noted. Echo showed no wall motion abnormality, troponin levels normal. Will adjust antibiotics based on stool studies/cultures. Replace electrolytes as needed. I personally reviewed the record. Patient is interviewed and examined at bedside. Patient's care is coordinated with Wilda Bello PA-C. Please refer to the documentation above for details of patient's presentation and for discussion of other issues.
[2023-03-29] MEDS: LACTATED RINGER'S 1,000 ML IV SCH ×2 (09:10→17:57)
[2023-03-29] MEDS: POTASSIUM CHLORIDE / WTR 10 MEQ/100 ML PLCT IV SCH ×3 (09:10→11:12)
[2023-03-29] MEDS ORDERED: valACYclovir HCL 500 MG TABLET PO ONE (09:39)
[2023-03-29] MEDS ORDERED: POLYETHYLENE (MIRALAX) 17 GM PACK PO PRN (10:55)
[2023-03-29] MEDS ORDERED: ONDANSETRON 4 MG OD TAB PO PRN (10:55)
[2023-03-29] MEDS ORDERED: ONDANSETRON INJ 2 MG/ML 2 ML VIAL IV PRN (10:55)
[2023-03-29] MEDS ORDERED: ACETAMINOPHEN 325 MG TAB PO PRN (10:55)
[2023-03-29] MEDS ORDERED: SODIUM CHLORIDE 0.9% 250 ML IV PRN (10:55)
[2023-03-29] MEDS: PIPERACILLIN/TAZOBACTAM 4.5 GM in DEXTROSE 5% 100 ML IV SCH ×2 (13:42→22:07)
[2023-03-29] MEDS: valACYclovir HCL 500 MG TABLET PO SCH ×2 (13:42→21:40)
[2023-03-29] MEDS ORDERED: PIPERACILLIN/TAZOBACTAM 4.5 GM/120ML D5W IV ONE (13:42)
[2023-03-29 14:42] LABS: Hemoglobin 11.9 g/dl (12.0-16.0)
[2023-03-29 14:57] LABS: BUN Creatinine Ratio 13.9 (10-20); Calcium 8.6 mg/dl (8.6-10.3); Creatinine Clr Calc Pharmacy 70.6 ml/min; Est GFR (Non-African American) 85.4 ml/min; Potassium 3.8 mmol/L (3.5-5.1)
[2023-03-29 15:00] LABS: Troponin I High Sensitivity 6.9 pg/ml (0-14)
--- NOTE | 2023-03-29 17:19 | Urology Consultation ---
Date of Consultation March 29, 2023 Assessment & Plan (1) Renal infarction: 68-year-old female admitted for GI bleed and colitis; CT with incidental finding of left renal infarction. Afebrile and hemodynamically stable. CT reviewed and discussed with patient. Area of possible hypoperfusion of the left which could be an infarct. She is asymptomatic. Denies flank pain or urinary signs or symptoms. Can check a UA and culture. No intervention required for renal infarction. Consider coagulopathy work-up if worsening renal function. Can repeat CT a/p with IV contrast in about 2 months with PCP. will sign off. History of Present Illness Reason for Consultation: Pyelonephritis, Subacute renal infarct Attending Physician: Juan Carlos Guzman MD History of Present Illness This is a 68-year-old female with past medical history of hyperlipidemia, hypertension, hypothyroidism and recent shingles diagnosis who presented to the emergency department on 03/29/2023 with complaints of diarrhea and bright red blood per rectum. On arrival, she was afebrile, tachycardic but otherwise hemodynamically stable. Lab work showed WBC 12.53, hemoglobin 12.9, creatinine 0.83. CT A/P with contrast showed moderate circumferential wall thickening of the descending colon and sigmoid colon with mild pericolonic infiltration, nonspecific colitis. There was incidental note of a 2.8 cm hypoenhancing focus within the upper pole of the left kidney favoring renal infarct, possibly subacute. She was admitted to the hospital medicine service for GI bleed and colitis. Urology is consulted for evaluation of renal infarct. Patient seen and examined at bedside in the emergency department. She is awake, alert and resting in litter, no apparent distress. She denies flank pain. She reports some abdominal pain and diarrhea over the past few days and then developed hematochezia prompting ER evaluation. Denies any urinary complaints. She is voiding spontaneously, no dysuria or hematuria. No history of pyelonephritis or frequent urinary tract infections. No prior urology evaluations. No family history of malignancy. Allergies Allergy/AdvReac Type Severity Reaction Status Date / Time Sulfa (Sulfonamide Allergy Verified 07/28/21 09:14 Antibiotics) Home Medications Medication Instructions Recorded Confirmed Type amlodipine 10 mg tablet 10 mg PO DAILY 07/28/21 03/29/23 History atorvastatin 20 mg tablet 20 mg PO DAILY 07/28/21 03/29/23 History lisinopril 10 mg tablet 10 mg PO DAILY 07/28/21 03/29/23 History ondansetron 4 mg disintegrating 4 mg PO Q6H PRN nausea and 03/27/23 03/29/23 Rx tablet vomiting #15 tabs valacyclovir 1 gram tablet 1,000 mg PO Q8H 7 days #21 tabs 03/27/23 03/29/23 Rx levothyroxine 75 mcg tablet 75 mcg PO DAILY 03/29/23 03/29/23 History Patient History Medical History History of uterine leiomyoma Hypothyroidism Lichen sclerosus Surgical History History of total abdominal hysterectomy and bilateral salpingo-oophorectomy age 39, took premarin x5 years Family History Mother Ovarian cancer Denies family history of Prostate cancer Breast cancer Colorectal cancer Social History Smoking Status: Never smoker Second Hand Exposure: No; Do You Dip or Chew Tobacco: No; Tobacco Cessation Education Requested by Patient: No Hx Alcohol Use: No Hx Substance Use: No Preferred Language: Citizen Of [place] Communication Ability: Effective Cutting Machine Offbearer Required: No Current Living Situation: Spouse Other Information That Helps Us Care for You: No Feels Safe at Home: Yes Safety Concerns: Feels Safe At This Time Assistive Devices: Denture - Upper and Glasses Results & Data Vital Signs (Past 12 Hours) Vital Signs Temp Pulse Pulse Resp BP Pulse Ox Pulse Ox 03/29/23 16:18 94 03/29/23 16:18 36.9 C 72 20 94 03/29/23 13:02 75 19 148/64 H 95 03/29/23 09:15 72 03/29/23 09:12 73 16 95 O2 Del Method O2 Del Method 03/29/23 16:18 Room Air 03/29/23 16:18 Room Air 03/29/23 13:02 Room Air 03/29/23 09:15 03/29/23 09:12 Room Air PG Care Time/CCT Total # of Minutes Spent Total Time Spent with Patient: Total time spent is greater than 50% in coordination of care (as documented) at patient's floor/unit and/or counseling patient: Coding Level of Care Code 73846 IN/OBS CONSULT LVL 4,60M Diagnoses Renal infarction N28.0
[2023-03-29 23:10] LABS: Hematocrit (blood only) 33.4 % (37.0-47.0); Hemoglobin 11.4 g/dl (12.0-16.0)
[2023-03-30] MEDS: LACTATED RINGER'S 1,000 ML IV SCH (05:26)
[2023-03-30] MEDS: PIPERACILLIN/TAZOBACTAM 4.5 GM in DEXTROSE 5% 100 ML IV SCH ×3 (05:26→22:18)
[2023-03-30] MEDS: valACYclovir HCL 500 MG TABLET PO SCH ×3 (05:27→22:18)
[2023-03-30] MEDS: LEVOTHYROXINE SODIUM 75 MCG TABLET PO SCH (05:27)
[2023-03-30 08:13] LABS: Hematocrit (blood only) 33.4 % (37.0-47.0); Hemoglobin 11.4 g/dl (12.0-16.0); Mean Corpuscular Hemoglobin 30.2 pg (25.0-34.0); Mean Corpuscular Hgb Conc 34.1 g/dL (32.0-36.0); Mean Corpuscular Volume 88.6 fL (80.0-100.0); Mean Platelet Volume 11.3 fL (9.4-12.4); Platelet Count 198 K/uL (130-400); RDW Standard Deviation 38.7 fL (36.4-46.3); Red Blood Count 3.77 M/uL (4.20-5.40); White Blood Count 12.42 K/ul (4.8-10.8)
[2023-03-30 08:33] LABS: Albumin Level 3.1 gm/dl (3.4-5.0); BUN Creatinine Ratio 7.5 (10-20); Bilirubin,Total 0.7 mg/dl (0.2-1.0); Calcium 8.5 mg/dl (8.6-10.3); Creatinine Clr Calc Pharmacy 67.4 ml/min; Est GFR (African American) 87.2 ml/min; Est GFR (Non-African American) 75.2 ml/min; Magnesium 1.9 mg/dl (1.7-2.4); Potassium 3.5 mmol/L (3.5-5.1); Total Protein 6.1 gm/dl (6.0-8.3)
[2023-03-30 08:35] LABS: Thyroid Stimulating Hormone 9.397 uIu/ml (0.300-4.500)
[2023-03-30] MEDS: ATORVASTATIN 20 MG TAB PO SCH (08:52)
[2023-03-30] MEDS: amLODIPine BESYLATE 5 MG TAB PO SCH (08:52)
[2023-03-30] MEDS: lisinopril 10 MG TAB PO SCH (08:53)
[2023-03-30 09:10] LABS: T4 Free Thyroxine 1.52 ng/dl (0.61-1.60)
--- NOTE | 2023-03-30 10:06 | Gastrointestinal Consultation ---
Date of Consultation March 30, 2023 Assessment & Plan (1) Colitis: (2) Hematochezia: Plan This likely represents a diverticular bleed (painless rectal bleeding - though we do not have any documented evidence of diverticular disease), versus nonspecific infectious colitis (mild leukocytosis though stool studies negative). She is much improved and has only had a mild drop in her hemoglobin, and is hemodynamically stable. Will advance diet. Would observe one more day as diverticular bleeding sometimes bleed a second time. Plan for Colonoscopy in June as previously scheduled. GI will sign off. Please notify us if bleeding recurs or call with other questions. Supervising Physician Co-Signing Physician Notes Patient was seen and examined on 03/30 with SARWAT Donis whose note reflects r findings and plan. History of Present Illness Reason for Consultation: Hemorrhagic Diarrhea Requesting Physician: Dr. Guzman Attending Physician: Tr Rogel MD History of Present Illness Ms. Rosana Lebalnc is a 68-year-old female patient of Dr. Hassan with a history of HTN, hypothyroidism, HLD who presented to the emergency department for bloody diarrhea. She tells me that she had diarrhea throughout the day on Tuesday but did not specifically have other symptoms of illness such as fever chills sweats nausea or vomiting (She does, however, have active shingles lesions). She has not had any significant abdominal pain, just mild cramping prior to defecation, improved after. On Tuesday evening the diarrhea became bloody she passed several bloody bowel movements that night and early yesterday morning. Since yesterday morning she has a few small loose bowel movements without any blood. She has mild leukocytosis andCT scan suggested a mild nonspecific colitis. Stool studies were negative for C. difficile and GI pathogens. Hb was 12 9 on arrival and is 11.4 this morning. Allergies Allergy/AdvReac Type Severity Reaction Status Date / Time Sulfa (Sulfonamide Allergy Verified 07/28/21 09:14 Antibiotics) Home Medications Medication Instructions Recorded Confirmed Type amlodipine 10 mg tablet 10 mg PO DAILY 07/28/21 03/29/23 History atorvastatin 20 mg tablet 20 mg PO DAILY 07/28/21 03/29/23 History lisinopril 10 mg tablet 10 mg PO DAILY 07/28/21 03/29/23 History ondansetron 4 mg disintegrating 4 mg PO Q6H PRN nausea and 03/27/23 03/29/23 Rx tablet vomiting #15 tabs levothyroxine 75 mcg tablet 75 mcg PO DAILY 03/29/23 03/29/23 History Patient History Medical History History of uterine leiomyoma Hypothyroidism Lichen sclerosus Surgical History History of total abdominal hysterectomy and bilateral salpingo-oophorectomy age 39, took premarin x5 years Family History Mother Ovarian cancer Denies family history of Prostate cancer Breast cancer Colorectal cancer Social History Smoking Status: Never smoker Second Hand Exposure: No; Do You Dip or Chew Tobacco: No; Hx Alcohol Use: No Hx Substance Use: No Preferred Language: Nepali Communication Ability: Effective Railroad Inspector Required: No Current Living Situation: Spouse Feels Safe at Home: Yes Assistive Devices: None Review of Systems Review of Systems: ROS: Gen: Denies weakness, fevers, weight loss Eyes: No eye redness, or pain, no recent vision changes Resp: No SOB, no cough Cardio: No palpitations/irregular beats, no chest pain GI: As per HPI otherwise negative : Denies pain on urination Skin: + shingles lesions. No jaundice, itching or other new rashes Physical Exam Constitutional: WD/WN, vitals as above Eyes: PERRL, conjunctivae normal, anicteric sclerae ENMT: external ear and nose normal, oropharynx normal Neck: trachea midline, no thyromegaly Respiratory: normal respiratory effort, lungs clear to auscultation Cardiovascular: RRR, no murmur, no edema Gastrointestinal (Abdomen): normal bowel sounds, soft, nontender, no hepatosplenomegaly Musculoskeletal: no cyanosis or clubbing, extremities motor strength 5/5 Skin: + shingles lesions right arm. Neurologic: PERRL, EOMI, accommodation nl, no face palsy, no dysarthria Psychiatric: A+Ox3, euthymic affect Lymphatic: no cervical or axillary lymphadenopathy Results & Data Vital Signs (Past 12 Hours) Vital Signs Temp Pulse Pulse Pulse Resp BP Pulse Ox 03/30/23 07:39 63 03/30/23 08:00 37.1 C 85 16 138/72 97 03/30/23 02:09 36.9 C 76 12 144/56 H 96 03/29/23 22:08 73 03/29/23 22:52 36.7 C 73 16 144/76 H 97 O2 Del Method 03/30/23 07:39 03/30/23 08:00 Room Air 03/30/23 02:09 Room Air 03/29/23 22:08 03/29/23 22:52 Room Air Laboratory Results WBC 12.4, Hb 11.4, HCT 33.4, PLT 198, NA 140, K3.5, CL 110, CO2 23, BUN 6, CR 0.8, glucose 97 Diagnostic Findings CTAP w IV 03/29/23: 1.Moderate circumferential wall thickening the descending colon and sigmoid colon with mild pericolonic infiltration. This represents a nonspecific colitis. No free air or abscess. 2. 2.8 cm hypoenhancing focus within the upper pole of the left kidney. This favors a renal infarct , possibly subacute. Pyelonephritis could appear similar although is considered less likely. 3. No bowel obstruction.
[2023-03-30 10:28] LABS: Estimated Average Glucose 105 mg/dl; Hemoglobin A1C 5.3 % (4.5-5.6)
--- NOTE | 2023-03-30 13:33 | Hospitalist Progress Note ---
Date of Service March 30, 2023 Assessment & Plan (1) GI bleed: (2) Colitis: Plan: Patient is a 68-year-old female who presented to the ED with complaints of bloody diarrhea. CT abdomen and pelvis personally reviewed; moderate circumferential wall thickening of descending colon and sigmoid colon. Represents nonspecific colitis. hemoglobin stable around 11.4. Leukocytosis with WBC of 12.4. Blood cultureno growth in 24 hours Stool PCR negative Discussed with GI; recommend outpatient colonoscopy. Advance diet as tolerated. Continue Zosyn. Monitor for lower GI bleed. CBC daily. DC fluids. (3) Herpes zoster: Plan: Shingles outbreak involving right upper extremity, right ear/cheek, right chest, right thigh, started on Tuesday 03/27 - Continue valtrex 1000 mg Q8H - Consider addition of gabapentin if becomes painful, currently pt reports mild pain/itching (4) Renal infarction: Plan: - CT of the abd pelvis- showing possible pyelonephritis and subacute renal infarct - pt denies urinary complaints Urology consulted; recommended to check a UA and culture. No urology intervention for renal infarction. Consider coagulopathy work-up due to worsening renal function. Can repeat CT abdomen/pelvis with IV contrast in 2 months with PCP. (5) HTN (hypertension): Plan: - May continue amlodipine and lisinopril for now (6) HLD (hyperlipidemia): Plan: - Cont atorvastatin (7) Hypothyroidism: Plan: - TSH elevated with normal T4 level. Continue current dose Repeat TSH in 6 weeks. DVT ppx: teds, scds with GI bleed CODE: FULL Dispo: From home, Time spent evaluating patient, direct bedside care, chart review, placing orders, interpretation of diagnostic studies, discussion with consultants, patient, and family members, as well as other required patient management activities is 60 minutes. Please note the above document was generated using voice recognition software. It may contain grammatical, syntax or spelling errors. Any formal questions or concerns about the content, text or information contained within the body of this dictation should be directly addressed to the provider for clarification Admission and Anticipated Discharge Date Admission Date: March 29, 2023 Subjective Patient seen and examined at bedside. She denies any bloody bowel movement. No abdominal pain or discomfort Afebrile, normotensive and saturating well on room air Review of Systems Review of Systems: All systems reviewed & are unremarkable except as noted in Subjective Physical Exam Physical Exam: General: awake, alert, no apparent distress, BMI 26.3 Head: Normocephalic, atraumatic, ENT: PERRL, EOMI, no pharyngeal exudate, mucous membranes moist Chest: Clear to auscultation, on room air, no adventitious breath sounds Cardiac: Regular rate and rhythm, soft systolic murmur grade 1/6, no JVD, normal peripheral pulses, good capillary refill Abdominal: NABS x 4 quadrants, soft, nondistended, nontender Extremities: Normal inspection, no peripheral edema or erythema, calfs nontender to palpation Psych: Normal mood and affect Neuro: AAO x 3, strength intact bilaterally and rated 5/5, no motor deficits, speech is clear, no peripheral sensory deficits Skin: Few vesicular rash-like lesions over the right earlobe 2 on her right cheek, significant rash involving the right deltoid region right anterior forearm, pinky finger, few singular lesions over the right chest wall, 1 on the bra line, 1 on her right thigh, 1 on right inner knee region. Results & Data Results & Data Vital Signs (Past 12 Hours) Vital Signs Temp Pulse Pulse Pulse Resp BP Pulse Ox 03/30/23 11:36 36.8 C 74 18 139/72 96 03/30/23 07:39 63 03/30/23 08:00 37.1 C 85 16 138/72 97 03/30/23 02:09 36.9 C 76 12 144/56 H 96 O2 Del Method 03/30/23 11:36 Room Air 03/30/23 07:39 03/30/23 08:00 Room Air 03/30/23 02:09 Room Air Laboratory Results Laboratory Results WBC 12.42 K/ul (4.8-10.8) H 03/30/23 07:36 RBC 3.77 M/uL (4.20-5.40) L 03/30/23 07:36 Hgb 11.4 g/dl (12.0-16.0) L 03/30/23 07:36 Hct 33.4 % (37.0-47.0) L 03/30/23 07:36 MCV 88.6 fL (80.0-100.0) 03/30/23 07:36 MCH 30.2 pg (25.0-34.0) 03/30/23 07:36 MCHC 34.1 g/dL (32.0-36.0) 03/30/23 07:36 RDW Std Deviation 38.7 fL (36.4-46.3) 03/30/23 07:36 RDW Coeff of Jocy 12.0 % (11.5-14.5) 03/30/23 07:36 Plt Count 198 K/uL (130-400) 03/30/23 07:36 MPV 11.3 fL (9.4-12.4) 03/30/23 07:36 Immature Gran % (Auto) 0.6 % 03/29/23 03:38 Neut % (Auto) 77.6 % 03/29/23 03:38 Lymph % (Auto) 14.2 % 03/29/23 03:38 Dixon % (Auto) 6.4 % 03/29/23 03:38 Eos % (Auto) 0.6 % 03/29/23 03:38 Baso % (Auto) 0.6 % 03/29/23 03:38 Neut # (Auto) 9.74 K/uL (1.40-6.50) H 03/29/23 03:38 Lymph # (Auto) 1.78 K/uL (1.2-3.4) 03/29/23 03:38 Dixon # (Auto) 0.80 K/uL (0.11-0.59) H 03/29/23 03:38 Eos # (Auto) 0.07 K/uL (0-0.50) 03/29/23 03:38 Baso # (Auto) 0.07 K/uL (0-0.2) 03/29/23 03:38 Immature Gran # (Auto) 0.07 K/uL (0.01-0.20) 03/29/23 03:38 PT 10.4 Seconds (9.0-12.0) 03/29/23 03:38 INR 0.9 (0.9-1.1) 03/29/23 03:38 APTT 24.7 Seconds (21.0-31.0) 03/29/23 03:38 PTT Ratio 0.9 03/29/23 03:38 Sodium 140 mmol/L (136-145) 03/30/23 07:36 Potassium 3.5 mmol/L (3.5-5.1) 03/30/23 07:36 Chloride 110 mmol/L (98-107) H 03/30/23 07:36 Carbon Dioxide 23 mmol/L (21-32) 03/30/23 07:36 Anion Gap 7 (3-11) 03/30/23 07:36 BUN 6 mg/dl (6-23) 03/30/23 07:36 Creatinine 0.80 mg/dl (0.6-1.2) 03/30/23 07:36 Est Cr Clr Drug Dosing 67.4 ml/min 03/30/23 07:36 Est GFR ( Amer) 87.2 ml/min 03/30/23 07:36 Est GFR (Non-Af Amer) 75.2 ml/min 03/30/23 07:36 BUN/Creatinine Ratio 7.5 (10-20) L 03/30/23 07:36 Glucose 97 mg/dl (70-99(Fasting)) 03/30/23 07:36 Estimat Average Glucose 105 mg/dl 03/30/23 07:36 Hemoglobin A1c 5.3 % (4.5-5.6) 03/30/23 07:36 Lactate 0.8 mmol/L (0.4-2.0) 03/29/23 08:26 Calcium 8.5 mg/dl (8.6-10.3) L 03/30/23 07:36 Magnesium 1.9 mg/dl (1.7-2.4) 03/30/23 07:36 Total Bilirubin 0.7 mg/dl (0.2-1.0) 03/30/23 07:36 AST 13 U/L (13-39) 03/30/23 07:36 ALT 11 U/L (7-52) 03/30/23 07:36 Alkaline Phosphatase 99 U/L (34-104) 03/30/23 07:36 Troponin I High Sens 6.9 pg/ml (0-14) 03/29/23 14:00 Total Protein 6.1 gm/dl (6.0-8.3) 03/30/23 07:36 Albumin 3.1 gm/dl (3.4-5.0) L 03/30/23 07:36 Globulin 3.0 gm/dl (2.5-4.0) 03/30/23 07:36 Albumin/Globulin Ratio 1.0 (0.9-2) 03/30/23 07:36 TSH 9.397 uIu/ml (0.300-4.500) H 03/30/23 07:36 Free T4 1.52 ng/dl (0.61-1.60) 03/30/23 07:36 POC Stool Occult Blood Positive (Negative) A 03/29/23 03:13 Stl C. cayetanensis PCR Not Detected (NotDetected) 03/29/23 05:15 Stool Rotavirus A PCR Not Detected (NotDetected) 03/29/23 05:15 Stl Adenov F 40/41 PCR Not Detected (NotDetected) 03/29/23 05:15 Stool Astrovirus (PCR) Not Detected (NotDetected) 03/29/23 05:15 Stool Campylobacter PCR Not Detected (NotDetected) 03/29/23 05:15 Stl C. diff Tox B Gene Negative Cdiff Gene (Neg) 03/29/23 05:15 Stool Cryptosporidium PCR Not Detected (NotDetected) 03/29/23 05:15 Stl E.coli Shiga Tox PCR Not Detected (NotDetected) 03/29/23 05:15 Stl Enterotoxigenic E PCR Not Detected (NotDetected) 03/29/23 05:15 Stool EPEC (PCR) Not Detected (NotDetected) 03/29/23 05:15 Stool EAEC (PCR) Not Detected (NotDetected) 03/29/23 05:15 Stl E. histolytica PCR Not Detected (NotDetected) 03/29/23 05:15 Stool Giardia Lamblia PCR Not Detected (NotDetected) 03/29/23 05:15 Stool Salmonella PCR Not Detected (NotDetected) 03/29/23 05:15 Stool Sapovirus (PCR) Not Detected (NotDetected) 03/29/23 05:15 Stl P. shigelloides PCR Not Detected (NotDetected) 03/29/23 05:15 Stl Shigella/EIEC PCR Not Detected (NotDetected) 03/29/23 05:15 St Y.enterocolitica PCR Not Detected (NotDetected) 03/29/23 05:15 Stool Vibrio (PCR) Not Detected (NotDetected) 03/29/23 05:15 Stl Vibrio cholerae PCR Not Detected (NotDetected) 03/29/23 05:15 Stl Norovirus GI/GII PCR Not Detected (NotDetected) 03/29/23 05:15 SARS-CoV-2, RNA, NAAT NEGATIVE (NEGATIVE) 03/29/23 04:30 Blood Type A Negative 03/29/23 08:26 Blood Type Recheck A Negative 03/29/23 10:20 Antibody Screen NEGATIVE 03/29/23 08:26 Crossmatch See Detail 03/29/23 08:26 Impressions Abdomen/Pelvis CT 03/29/23 05:02 CT OF THE ABDOMEN AND PELVIS WITH CONTRAST CLINICAL HISTORY: Bright red blood per rectum. COMPARISON STUDY: None. TECHNIQUE: Following IV administration of 93 mL of Optiray, axial images of the abdomen and pelvis were obtained from the lung bases to the proximal femurs. Images were reviewed in the axial, sagittal, and coronal planes. IV contrast was administered without complication. Automated exposure control was utilized for the study. A dose lowering technique was utilized adhering to the principles of ALARA. CT DOSE: 1252.49 mGy.cm FINDINGS: Lung bases are unremarkable. No pneumatosis, free air or portal venous gas is present. Liver, spleen, adrenal glands and pancreas are unremarkable. There is no biliary or pancreatic ductal dilatation. Multiple subcentimeter renal lesions are too small to characterize. There is a 2.8 cm hypoenhancing focus within the upper pole of the left kidney. There is no evidence for a bowel obstruction. There is moderate circumferential wall thickening of the descending colon and the proximal to mid sigmoid colon with mild pericolonic infiltration. There is no free air or abscess. The appendix is normal. There is extensive plaque of the abdominal aorta which is normal in caliber. The branch vessels are patent. No abdominal or pelvic lymphadenopathy is present. Minimal mesenteric infiltration is of doubtful significance. No acute fractures are identified within the visualized skeletal structures. IMPRESSION: 1. Moderate circumferential wall thickening the descending colon and sigmoid colon with mild pericolonic infiltration. This represents a nonspecific colitis. No free air or abscess. 2. 2.8 cm hypoenhancing focus within the upper pole of the left kidney. This f avors a renal infarct , possibly subacute. Pyelonephritis could appear similar although is considered less likely. 3. No bowel obstruction. ACT 112: Negative or not required by law. Electronically signed by: Nathaniel Cantu M.D. 03/29/2023 6:41 AM
[2023-03-30 18:34] LABS: Appearance Urine Clear (Clear); Bacteria Urine Automated Negative (Negative); Bilirubin Urine Negative (Negative); Blood Urine Negative (Negative); Cast Urine Automated 0 /lpf (0-5); Color Urine Yellow; Glucose Urine UA Negative (Negative); Ketones Urine Negative (Negative); Leukocyte Esterase Urine Trace (Negative); Nitrite Urine Negative (Negative); Protein Urine Negative (Negative); RBC Urine Automated 0-4 /hpf (0-4); Specific Gravity Urine 1.008 (1.000-1.030); Urobilinogen Urine Negative (Negative); pH Urine 5.5 (4.5-7.5)
--- NOTE | 2023-03-31 05:43 | Electrocardiogram Report ---
Test Reason : Blood Pressure : / mmHG Vent. Rate : 086 BPM Atrial Rate : 086 BPM P-R Int : 154 ms QRS Dur : 078 ms QT Int : 356 ms P-R-T Axes : 052 -09 011 degrees QTc Int : 426 ms Normal sinus rhythm Premature atrial complexes When compared with ECG of 27-MAR-2023 10:07, Premature atrial complexes are now Present Reconfirmed by Pepe Su ([id number]) on 03/31/2023 5:43:16 AM Referred By: REFERRED SELF Confirmed By:Pepe Su
[2023-03-31] MEDS: LEVOTHYROXINE SODIUM 75 MCG TABLET PO SCH (05:45)
[2023-03-31] MEDS: valACYclovir HCL 500 MG TABLET PO SCH (05:45)
[2023-03-31 07:17] LABS: Basophils # (auto) 0.07 K/uL (0-0.2); Basophils % (auto) 0.6 %; Eosinophils # (auto) 0.41 K/uL (0-0.50); Eosinophils % (auto) 3.7 %; Hematocrit (blood only) 32.6 % (37.0-47.0); Hemoglobin 11.3 g/dl (12.0-16.0); Immature Granulocytes # (auto) 0.05 K/uL (0.01-0.20); Immature Granulocytes % (auto) 0.5 %; Lymphocytes # (auto) 2.43 K/uL (1.2-3.4); Lymphocytes % (auto) 22.1 %; Mean Corpuscular Hgb Conc 34.7 g/dL (32.0-36.0); Mean Corpuscular Volume 86.5 fL (80.0-100.0); Mean Platelet Volume 11.2 fL (9.4-12.4); Monocytes # (auto) 0.63 K/uL (0.11-0.59); Monocytes % (auto) 5.7 %; Neutrophils # (auto) 7.39 K/uL (1.40-6.50); Neutrophils % (auto) 67.4 %; Platelet Count 220 K/uL (130-400); RDW Coefficient of Variation 12.1 % (11.5-14.5); RDW Standard Deviation 38.6 fL (36.4-46.3); Red Blood Count 3.77 M/uL (4.20-5.40); White Blood Count 10.98 K/ul (4.8-10.8)
[2023-03-31] MEDS: PIPERACILLIN/TAZOBACTAM 4.5 GM in DEXTROSE 5% 100 ML IV SCH (07:23)
[2023-03-31 07:32] LABS: BUN Creatinine Ratio 6.4 (10-20); Calcium 8.5 mg/dl (8.6-10.3); Creatinine Clr Calc Pharmacy 68.7 ml/min; Est GFR (African American) 89.9 ml/min; Est GFR (Non-African American) 77.6 ml/min; Potassium 3.4 mmol/L (3.5-5.1)
[2023-03-31] MEDS: lisinopril 10 MG TAB PO SCH (08:19)
[2023-03-31] MEDS: ATORVASTATIN 20 MG TAB PO SCH (08:20)
[2023-03-31] MEDS: amLODIPine BESYLATE 5 MG TAB PO SCH (08:20)
--- NOTE | 2023-03-31 13:28 | Discharge Summary ---
Date of Service March 31, 2023 Admission HPI Per Admitting Provider This is a 68 yo F with PMHx with PMHx of hypothyroidism, herpes zoster with shingles currently on valtrex, possible renal infarction who presents to the hospital with complaints of bloody diarrhea. On Tuesday she started having pain over her right arm, was in the shower, and felt dizzy and fell, believes she passed out, but denies hitting her head as her was in the bathroom with her and broke her fall by catching her and setting her down. On Tuesday the patient noticed that she was starting to have an outbreak of a rash on her right arm going down the shoulder into her forearm. She thought that it was possibly shingles so called her doctor's office who gave her a prescription for Valtrex which she started on Tuesday. Then yesterday started with diarrhea all day and progressed to GI bleed with bright red blood and some clots, no nausea or vomiting. She has had central abdominal cramping which is relieved with bowel movement. Initially on Tuesday and Tuesday had some nausea. She had been eating well until yesterday, but has not had much by way of p.o. intake for the past 24 hours. She presented to the ER at 3 AM mostly because of progressive bloody bowel movements. Patient is feeling somewhat better at this point after some fluids. Pt is making urine which is clear, denies dysuria or blood there. She has never had a outbreak of shingles before. Patient reports living at home with her , but otherwise no recent immunocompromised contacts. Admission Exam Per Admitting Provider General: awake, alert, no apparent distress, BMI 26.3 Head: Normocephalic, atraumatic, ENT: PERRL, EOMI, no pharyngeal exudate, mucous membranes moist Chest: Clear to auscultation, on room air, no adventitious breath sounds Cardiac: Regular rate and rhythm, soft systolic murmur grade 1/6, no JVD, normal peripheral pulses, good capillary refill Abdominal: NABS x 4 quadrants, soft, nondistended, + mild diffuse tenderness to palpation in central abdominal region, no rebound or guarding Extremities: Normal inspection, no peripheral edema or erythema, calfs nontender to palpation Psych: Normal mood and affect Neuro: AAO x 3, strength intact bilaterally and rated 5/5, no motor deficits, speech is clear, no peripheral sensory deficits Skin: Few vesicular rash-like lesions over the right earlobe 2 on her right cheek, significant rash involving the right deltoid region right anterior forearm, pinky finger, few singular lesions over the right chest wall, 1 on the bra line, 1 on her right thigh, 1 on right inner knee region. Principal Diagnosis Lower GI bleed Colitis Shingles Renal infarction Discharge Exam General: awake, alert, no apparent distress, BMI 26.3 Head: Normocephalic, atraumatic, ENT: PERRL, EOMI, no pharyngeal exudate, mucous membranes moist Chest: Clear to auscultation, on room air, no adventitious breath sounds Cardiac: Regular rate and rhythm, soft systolic murmur grade 1/6, no JVD, normal peripheral pulses, good capillary refill Abdominal: NABS x 4 quadrants, soft, nondistended, nontender Extremities: Normal inspection, no peripheral edema or erythema, calfs nontender to palpation Psych: Normal mood and affect Neuro: AAO x 3, strength intact bilaterally and rated 5/5, no motor deficits, speech is clear, no peripheral sensory deficits Skin vesicular rash likely is not seen. Discharge Data Allergies Allergy/AdvReac Type Severity Reaction Status Date / Time Sulfa (Sulfonamide Allergy Verified 07/28/21 09:14 Antibiotics) Consultations 03/29/23 07:05 ED Decision to Admit Stat 03/29/23 10:55 Consult Gastroenterology Routine Consult Urology Routine Ordered Studies 03/29/23 05:02 CT Abd and Pelvis [CT abd pelvis IV con only] Stat Hospital Course (1) GI bleed: (2) Colitis: Patient is a 68-year-old female who presented to the ED with complaints of bloody diarrhea. CT abdomen and pelvis personally reviewed; moderate circumferential wall thickening of descending colon and sigmoid colon. Represents nonspecific colitis. During the hospitalization, patient was admitted to telemetry floor. She was started on IV antibiotic with Zosyn. GI was consulted for comanagement. GI recommended outpatient colonoscopy as a scheduled before. Hemoglobin was monitored. Patient reported improvement in the bloody diarrhea; was having normal bowel movements at the time of discharge. Her hemoglobin remained stable around 11. She was discharged home on course of ciprofloxacin and Flagyl (3) Herpes zoster: Shingles outbreak involving right upper extremity, right ear/cheek, right chest, right thigh, started on Tuesday 03/27 in the ED At discharge, patient was recommended to complete the course of Valtrex. She may need referral to dermatology if the vesicular lesions does not resolve. (4) Renal infarction: - CT of the abd pelvis- showing possible pyelonephritis and subacute renal infarct - pt denies urinary complaints During the hospitalization, urology was consulted; recommended to check a UA and culture. No urology intervention for renal infarction. Repeat CT abdomen/pelvis with IV contrast in 2 months with PCP. Plan Please note the above document was generated using voice recognition software. It may contain grammatical, syntax or spelling errors. Any formal questions or concerns about the content, text or information contained within the body of this dictation should be directly addressed to the provider for clarification Total Time Total Time Spent Total Time Spent (In Minutes): 45 Discharge Plan Discharge Items Patient Disposition: Home - Self-Care Reason For Visit: HEMORRHAGIC DIARRHEA Discharge Diagnosis: Colitis Activity: Resume your previous activity Non-emergency contact: Primary Care Provider Call non-emergency contact if: you have any medication questions and your symptoms worsen Follow-up/Referrals: Job Hassan MD [Primary Care Provider] - (Date & Time 04/06/2023 1:20 PM Provider Joselito Thompson MD [facility] ) Diet: Regular Addtl Attending Provider Instructions: You were admitted to the hospital with colitis. You are prescribed following antibiotics for 5 days: 1) ciprofloxacin 500 mg twice a day for 5 days 2) metronidazole 500 mg 3 times daily for 5 days You were evaluated by gastroenterology during the hospitalization; they recommended you to follow-up for colonoscopy as scheduled. Please complete the course of valacyclovir prescribed to you. You need to take it 3 times a day till April 03, 2023. You might need referral to dermatology if the skin lesions do not get resolved. The CAT scan of the abdomen done during the hospitalization showed 2.8 cm hypodense focus in upper left pole of left kidney. Urology saw you in the hospital; they recommended to get CT abdomen pelvis with IV contrast in about 2 months with primary care doctor. Please follow-up with your primary care doctor as scheduled. Pending Studies at Discharge: No Stand-Alone Forms: My Active-[employer], Smoking Cessation Medications and DC Order Prescriptions: New ciprofloxacin HCl 500 mg tablet 500 mg PO BID 5 Days Qty: 10 0RF metronidazole 500 mg tablet 500 mg PO TID 5 Days Qty: 15 0RF Continued atorvastatin 20 mg tablet 20 mg PO DAILY lisinopril 10 mg tablet 10 mg PO DAILY amlodipine 10 mg tablet 10 mg PO DAILY valacyclovir 1 gram tablet 1,000 mg PO Q8H 7 Days Qty: 21 0RF ondansetron 4 mg tablet,disintegrating 4 mg PO Q6H PRN (Reason: nausea and vomiting) Qty: 15 0RF levothyroxine 75 mcg Tablet 75 mcg PO DAILY Discharge Orders: Discharge Order (Routine); Ordered 03/31/23 Ordered By: Tr Rogel Admission Data Admit Date/Time: 03/29/23 08:12 Attending Provider: Tr Rogel Admit Provider: Juan Carlos Guzman Primary Care Provider: Job Hassan Other Providers: Laly George ; Courtney Chong ; Jason Savage ; Nohelia Pineda ; Irma Mary ; Uma Pitts ; Priti Lopez ; [place],Shine ; [place] ; Porsche Grimm ; Khushbu Michael ; Aime Swain ; Shira Rios ; Kusum Mercado ; Lia Perez ; Teresa Varela ; Altagracia Main ; Mehran [place] ; Dhruv Martin ; Annette Negron ; Bhargavi Fischer Jr ; Dakota Haas ; Juan Rivas ; Miguel Dixon ; Sue Corrales ; Albaro Rodriguez ; Theresa Bowles ; Tatum Kelly ; Elio Obando ; Sabina Mathias ; Giana Landaverde ; Castillo Hobson ; Frederic Lynn ; Juan Carlos Guzman Other Interventions: Discharge Summary Assessment (RN) Last Done: 03/31/23 12:20
--- NOTE | 2023-04-01 06:32 | Electrocardiogram Report ---
Test Reason : Blood Pressure : / mmHG Vent. Rate : 077 BPM Atrial Rate : 077 BPM P-R Int : 164 ms QRS Dur : 078 ms QT Int : 414 ms P-R-T Axes : 047 -14 005 degrees QTc Int : 468 ms Sinus rhythm with Premature atrial complexes Inferior infarct , age undetermined Cannot rule out Anterior infarct , age undetermined Nonspecific T wave abnormality Abnormal ECG When compared with ECG of 29-MAR-2023 03:20, Premature atrial complexes are now Present Nonspecific T wave abnormality now evident in Anterior leads Confirmed by Pepe Su ([id number]) on 04/01/2023 6:32:25 AM Referred By: REFERRED SELF Confirmed By:Pepe Su
== END 2023-03-31 13:18 | disposition home or self-care (01) | DRG 392 ==
LOC: ED 03:00 → SUATTDRO 08:12 → EDINP 08:12 → 2S 19:15